=== PATIENT | male | born 1985 | race Caucasian/White ===

== ENCOUNTER 2020-04-18 21:48 | Emergency (ER) | payer BC, SELFPAY ==
[~2020-04-18] VITALS: Ht 182.9 cm; Wt 86.2 kg
[~2020-04-18 21:48] MED LIST: ALBU90I INH; AMOX500 PO; ASCO1ER PO; CODGUAEL PO; HYDACE5 PO; IBUP200 PO; LACT10SY PO; NAPR550 PO; NYQUIL; OXYACE5T PO; RXHYDACE PO; RXNAPNA550 PO
[2020-04-18] MEDS ORDERED: OMEP20ER PO (22:01)
[2020-04-18 22:18] LABS: BASOPHILS ABSOLUTE AUTO 0.04 K/mm3 (0.00-0.23); BASOPHILS PERCENT AUTO 0 % (0-2); EOSINOPHILS ABSOLUTE AUTO 0.43 K/mm3 (0.00-0.68); EOSINOPHILS PERCENT AUTO 3 % (0-6); Hematocrit 40.7 % (37.0-53.0); Hemoglobin 13.3 g/dL (13.5-17.5); Mean Corpuscular HGB 29.9 pg (26.0-34.0); Mean Corpuscular HGB Conc 32.7 g/dL (31.5-36.5); Mean Corpuscular Volume 92 fL (80-100); Mean Platelet Volume 10.3 fL (9.1-12.4); NRBC ABSOLUTE 0.03 K/mm3 (0.00-0.02); NRBC Auto 0.2 /100 WBC (0.0-0.2); Platelet Count 278 K/mm3 (150-400); RDW Coefficient Variation 11.7 % (11.7-14.2); RDW Standard Deviation 39.2 fL (35.1-46.3); Red Blood Cell Count 4.45 M/mm3 (4.30-5.90); White Blood Cell Count 13.47 K/mm3 (4.00-11.30)
[2020-04-18 22:19] LABS: IMMATURE GRAN ABSOLUTE AUTO 0.05 K/mm3 (0.00-0.10); IMMATURE GRAN PERCENT AUTO 0 % (0-1); LYMPHOCYTES ABSOLUTE AUTO 8.23 K/mm3 (0.84-5.20); LYMPHOCYTES PERCENT AUTO 61 % (21-46); MONOCYTES ABSOLUTE AUTO 0.88 K/mm3 (0.16-1.47); MONOCYTES PERCENT AUTO 7 % (4-13); NEUTROPHILS ABSOLUTE AUTO 3.84 K/mm3 (1.96-9.15); NEUTROPHILS PERCENT AUTO 29 % (41-73)
[2020-04-18 22:36] LABS: Alanine Aminotransfer (ALT/SGP 49 U/L (12-78); Albumin, Blood 4.4 g/dL (3.4-5.0); Albumin/Globulin Ratio 1.4 (0.8-1.8); Alk Phos 50 U/L (50-136); Anion Gap 8 mmol/L (6-16); Aspartate Aminotrans (AST/SGOT 57 U/L (12-37); Bilirubin, Total 0.4 mg/dL (0.1-1.0); Blood Urea Nitrogen 11 mg/dL (8-24); Bun/Creatinine Ratio 12.1 (12.0-20.0); CO2, Blood 28 mmol/L (21-32); Calcium, Blood 8.7 mg/dL (8.5-10.1); Chloride, Blood 102 mmol/L (98-108); Creatinine, Blood 0.91 mg/dL (0.60-1.20); Globulin, Blood 3.1 g/dL (2.2-4.0); Glomerular Filtration Rate >60 (60-); Glucose, Blood 112 mg/dL (70-99); Potassium, Blood 3.2 mmol/L (3.5-5.5); Sodium, Blood 138 mmol/L (136-145); Total Protein, Blood 7.5 g/dL (6.4-8.2)
[2020-09-08] MEDS ORDERED: AMPDEX10CR PO (15:09)
== END 2020-04-19 00:18 | disposition home or self-care (01) ==
LOC: ER 21:48
PROVIDERS: Emergency Medicine
DX: R10.13 Epigastric pain (principal); R07.9 Chest pain, unspecified; Z88.1 Allergy status to other antibiotic agents; Z87.891 Personal history of nicotine dependence; Z79.899 Other long term (current) drug therapy
CPT/HCPCS: 36415; 74176; 80053; 83690; 85025; 96374; 96375; 99284-25; J1170; J2405; J7030

== ENCOUNTER 2020-09-15 12:02 | Day surgery (SDC) | payer BC ==
[~2020-09-15] VITALS: Ht 182.9 cm; Wt 88.3 kg
[~2020-09-15 12:02] MED LIST changes: +AMPDEX10CR PO; +OMEP20ER PO
[2020-09-15] MEDS ORDERED: ESOM20 (12:21)
== END 2020-09-15 14:26 | disposition home or self-care (01) ==
LOC: ORSCSDS 12:02
PROVIDERS: Internal Medicine Gastroenterology
PROC: 0D757ZZ Dilation of Esophagus, Via Natural or Artificial Opening (ICD-10-PCS; principal; 2020-09-15 13:15)
PROC: 0DB58ZX Excision of Esophagus, Via Natural or Artificial Opening Endoscopic, Diagnostic (ICD-10-PCS; principal; 2020-09-15 13:15)
DX: R13.10 Dysphagia, unspecified (principal); K21.9 Gastro-esophageal reflux disease without esophagitis; Z87.891 Personal history of nicotine dependence; Z79.899 Other long term (current) drug therapy; J45.909 Unspecified asthma, uncomplicated
CPT/HCPCS: 88305; J2250; J2704; J7120

== ENCOUNTER 2020-10-19 07:37 | Day surgery (SDC) | payer BC ==
[~2020-10-19] VITALS: Ht 182.9 cm; Wt 88.5 kg
[~2020-10-19 07:37] MED LIST changes: +ESOM20
--- NOTE | 2020-10-19 08:44 | NUR ---
10/19/20 0844 Melissa Fang PATIENT RESTING COMFORTABLY WITH CALL LIGHT IN REACH, DENIES NEEDS AT PRESENT. INFORMED OF SURGEON DELAY AND STATES UNDERSTANDING.
--- NOTE | 2020-10-19 10:02 | NUR ---
10/19/20 1002 Sarah Pisano PT. COUGHING UP BLOOD TINGE SECRETIONS IN SMALL AMT. DR. LARA TALKING WITH PT. & INSTRUCTING PT. TO TAKE HIS REFLUX MEDICATION TWICE DAILY 1/2 BEFORE EATING ANYTHING. PT. EATING CRACKERS & DRINKING JEET MIST. CALL LIGHT IS WITDORA GUZMÁN.
== END 2020-10-19 10:21 | disposition home or self-care (01) ==
LOC: ORSCSDS 07:37
PROVIDERS: Otolaryngology
PROC: 0CBM8ZX Excision of Pharynx, Via Natural or Artificial Opening Endoscopic, Diagnostic (ICD-10-PCS; principal; 2020-10-19 09:00)
DX: R13.12 Dysphagia, oropharyngeal phase (principal); J35.1 Hypertrophy of tonsils; K21.9 Gastro-esophageal reflux disease without esophagitis; Z79.899 Other long term (current) drug therapy
CPT/HCPCS: 88305; A9270; J1100; J1885; J2001; J2250; J2405; J2704; J3010; J7120

== ENCOUNTER 2020-10-21 14:02 | Emergency (ER) | payer BC ==
[~2020-10-21] VITALS: Ht 182.9 cm; Wt 90.7 kg
== END 2020-10-21 17:23 | disposition home or self-care (01) ==
LOC: ER 14:02
DX: S01.511A Laceration without foreign body of lip, initial encounter (principal); Z88.1 Allergy status to other antibiotic agents; Z79.899 Other long term (current) drug therapy; Z87.891 Personal history of nicotine dependence
CPT/HCPCS: 12011; 90471; 90714; 99282-25

== ENCOUNTER 2021-09-17 20:44 | Emergency (ER) | payer OTHER, BC ==
[~2021-09-17] VITALS: Ht 185.4 cm; Wt 80.7 kg
== END 2021-09-17 23:05 | disposition home or self-care (01) ==
LOC: ER 20:44
DX: S81.811A Laceration without foreign body, right lower leg, initial encounter (principal); J45.909 Unspecified asthma, uncomplicated; V86.56XA Driver of dirt bike or motor/cross bike injured in nontraffic accident, initial encounter; Y92.9 Unspecified place or not applicable; Z87.891 Personal history of nicotine dependence; Z79.899 Other long term (current) drug therapy
CPT/HCPCS: 12002; 99282-25